=== PATIENT | female | born 1990 | race Two or more races ===

== ENCOUNTER 2021-02-07 09:58 | Emergency (ER) | payer MEDICAID, OTHER ==
[~2021-02-07] VITALS: Ht 165.1 cm; Wt 65.8 kg
[2021-02-07 10:32] VITALS: BP 128/88
== END 2021-02-07 11:01 | disposition home or self-care (01) ==
LOC: ER 09:58
DX: S93.691A Other sprain of right foot, initial encounter (principal); W22.8XXA Striking against or struck by other objects, initial encounter; Y93.89 Activity, other specified; Y92.89 Other specified places as the place of occurrence of the external cause; Y99.8 Other external cause status
CPT/HCPCS: 73630

== ENCOUNTER 2021-04-09 22:20 | Emergency (ER) | payer MEDICAID ==
[~2021-04-09] VITALS: Ht 162.6 cm; Wt 68.0 kg
[2021-04-09] MEDS ORDERED: diphenhdrAMINE HCL 50 MG/1 ML VL IM ONE (23:00)
[2021-04-09] MEDS ORDERED: methylPREDNISolone SOD SUCC 125 MG/2 ML VL IM ONE (23:00)
[2021-04-09 23:10] VITALS: BP 143/97
== END 2021-04-09 23:59 | disposition home or self-care (01) ==
LOC: ER 22:24
DX: L50.0 Allergic urticaria (principal); L29.9 Pruritus, unspecified
CPT/HCPCS: 96372; 99284; J1200; J2930

== ENCOUNTER 2022-04-30 14:26 | Emergency (ER) | payer MEDICAID, OTHER ==
[~2022-04-30] VITALS: Ht 165.1 cm; Wt 63.3 kg
[2022-04-30 16:30] VITALS: BP 110/74
[2022-04-30] MEDS ORDERED: IBUP800T27 PO (16:57)
[2022-04-30] MEDS ORDERED: CYCL-837 PO (16:57)
== END 2022-04-30 18:43 | disposition home or self-care (01) ==
LOC: ER 14:26
DX: S16.1XXA Strain of muscle, fascia and tendon at neck level, initial encounter (principal); R51.9 Headache, unspecified; V43.62XA Car passenger injured in collision with other type car in traffic accident, initial encounter; Y93.89 Activity, other specified; Y92.410 Unspecified street and highway as the place of occurrence of the external cause; Y99.8 Other external cause status
CPT/HCPCS: 70450; 72125

== ENCOUNTER 2023-04-03 22:05 | Inpatient (IN) | payer MEDICAID ==
[~2023-04-03] VITALS: Ht 162.6 cm; Wt 69.0 kg
[~2023-04-03 22:05] MED LIST: CYCL-837 PO; IBUP-1456 PO
[2023-04-03] MEDS ORDERED: ONDANSETRON HCL 4 MG/2 ML VIAL IV ONE (22:30)
[2023-04-03] MEDS ORDERED: SODIUM CHLORIDE 0.9% 1,000 ML IV ONE (22:30)
[2023-04-03] MEDS ORDERED: MORPHINE SULFATE 4 MG/ML SYR/VIAL IV ONE (22:30)
[2023-04-03 23:28] LABS: Basophils # (auto) 0 10 ^3/uL (0-0.2); Basophils % (auto) 0.2 % (0.0-2.0); Eosinophils # (auto) 0 10 ^3/uL (0-0.8); Eosinophils % (auto) 0.2 % (0.0-7.0); Hematocrit 35.2 % (36.0-46.0); Hemoglobin 11.5 g/dL (12.2-16.2); Lymphocytes # (auto) 0.9 10 ^3/uL (0.4-5.4); Lymphocytes % (auto) 5.5 % (10.0-50.0); Mean Corpuscular Hemoglobin 28.9 pg (28.0-32.0); Mean Corpuscular Hgb Conc. 32.8 g/dL (32.0-36.0); Mean Corpuscular Volume 88.1 fL (80.0-100.0); Monocytes # (auto) 0.5 10 ^3/uL (0-1.3); Monocytes % (auto) 3.3 % (0.0-12.0); Neutrophils # (auto) 14.5 10 ^3/uL (1.6-8.6); Neutrophils % (auto) 90.8 % (37.0-80.0); Red Blood Cells 3.99 10^6/uL (4.0-5.20); Red Cell Distribution Width 13.2 % (11.8-14.3)
[2023-04-03 23:45] LABS: Albumin 3.5 g/dL (3.4-5.0); BUN/Creatinine Ratio 13.5 (10.0-20.0); Calcium 8.2 mg/dL (8.5-10.1); Potassium 3.6 mmol/L (3.5-5.1)
[2023-04-03 23:54] LABS: Bilirubin, Total 0.4 mg/dL (0.2-1.0); Total Protein 6.7 g/dL (6.4-8.2)
[2023-04-04] MEDS ORDERED: HYDROmorphone HCL 2 MG/ML VL/or syr IV ONE (00:15)
[2023-04-04] MEDS ORDERED: MIDAZOLAM HCL 5 MG/ML-1ML VIAL IV ONE ×2 (01:15→03:05)
[2023-04-04] MEDS ORDERED: SODIUM CHLORIDE 0.9% 1,000 ML IV ONE ×2 (01:15→12:15)
[2023-04-04] MEDS ORDERED: KETOROLAC TROMETH 30 MG/ML 1ML VIAL IV ONE (01:15)
[2023-04-04 02:37] LABS: Urine Bacteria FEW /hpf (None Seen); Urine Blood Negative /uL (Negative); Urine Mucus FEW (None Seen); Urine Specific Gravity 1.016 (1.001-1.035); Urine WBC 12 /hpf (0 - 5)
[2023-04-04 02:47] LABS: Alcohol, Urine < 3.0 mg/dL (0-10); Cannabinoid Screen, Urine POSITIVE (NEGATIVE); Cocaine Screen, Urine NEGATIVE (NEGATIVE); Phencyclidine Screen, Urine NEGATIVE (NEGATIVE)
[2023-04-04 02:54] LABS: Amphetamine Screen, Urine NEGATIVE (NEGATIVE); Barbiturate Scree,Urine NEGATIVE (NEGATIVE); Benzodiazephine Screen, Urine NEGATIVE (NEGATIVE); Opiate Scree,Urine POSITIVE (NEGATIVE)
[2023-04-04] MEDS ORDERED: ONDANSETRON HCL 4 MG/2 ML VIAL IV ONE (04:30)
[2023-04-04] MEDS ORDERED: diphenhdrAMINE HCL 50 MG/1 ML VL IV ONE (04:40)
[2023-04-04] MEDS ORDERED: HALOPERIDOL LACTATE 5 MG/ML INJ VIAL IM ONE (04:40)
[2023-04-04] MEDS ORDERED: MORPHINE SULFATE INJ 2 MG/ml SYRG IV PRN (08:15)
[2023-04-04] MEDS ORDERED: SODIUM CHLORIDE 0.9% 1,000 ML IV SCH (08:15)
[2023-04-04] MEDS ORDERED: PANTOPRAZOLE 40 MG/10 ML VIAL INJ IV ONE (08:15)
[2023-04-04] MEDS ORDERED: POTASSIUM CHL 20 Meq TABLET PO ONE (08:15)
[2023-04-04] MEDS: ONDANSETRON HCL 4 MG/2 ML VIAL IV PRN ×5 (08:30→23:17)
[2023-04-04] MEDS ORDERED: POTASSIUM CHL 20MEQ/100ML 100 ML IV ONE (08:30)
[2023-04-04] MEDS ORDERED: ONDANSETRON HCL 4 MG/2 ML VIAL IV PRN (12:00)
[2023-04-04] MEDS ORDERED: DOCUSATE SOD 100 MG CAP PO PRN (12:00)
[2023-04-04] MEDS: SODIUM CHLORIDE 0.9% 1,000 ML IV SCH ×2 (12:35→20:34)
[2023-04-04] MEDS: MORPHINE SULFATE INJ 2 MG/ml SYRG IV PRN ×3 (13:24→22:27)
[2023-04-05] MEDS: ONDANSETRON HCL 4 MG/2 ML VIAL IV PRN (04:50)
[2023-04-05] MEDS: MORPHINE SULFATE INJ 2 MG/ml SYRG IV PRN ×5 (04:51→20:49)
[2023-04-05] MEDS: SODIUM CHLORIDE 0.9% 1,000 ML IV SCH ×3 (05:12→22:17)
[2023-04-05 05:57] LABS: Basophils # (auto) 0.1 10 ^3/uL (0-0.2); Basophils % (auto) 0.7 % (0.0-2.0); Eosinophils # (auto) 0.1 10 ^3/uL (0-0.8); Eosinophils % (auto) 0.9 % (0.0-7.0); Hematocrit 32.3 % (36.0-46.0); Hemoglobin 10.5 g/dL (12.2-16.2); Lymphocytes % (auto) 21.5 % (10.0-50.0); Mean Corpuscular Hemoglobin 28.9 pg (28.0-32.0); Mean Corpuscular Hgb Conc. 32.6 g/dL (32.0-36.0); Mean Corpuscular Volume 88.7 fL (80.0-100.0); Monocytes # (auto) 0.6 10 ^3/uL (0-1.3); Monocytes % (auto) 6.7 % (0.0-12.0); Neutrophils # (auto) 6.4 10 ^3/uL (1.6-8.6); Neutrophils % (auto) 70.2 % (37.0-80.0); Red Blood Cells 3.64 10^6/uL (4.0-5.20); Red Cell Distribution Width 13.4 % (11.8-14.3); White Blood Cell 9.1 10^3/uL (4.4-10.8)
[2023-04-05 06:16] LABS: Potassium 3.5 mmol/L (3.5-5.1)
[2023-04-05 06:27] LABS: Albumin 2.9 g/dL (3.4-5.0); BUN/Creatinine Ratio 10.7 (10.0-20.0); Bilirubin, Total 0.4 mg/dL (0.2-1.0); Calcium 7.7 mg/dL (8.5-10.1); Total Protein 5.4 g/dL (6.4-8.2)
[2023-04-05] MEDS ORDERED: POLYETHYLENE GLYCOL 17 GM PWDR PO ONE (08:45)
[2023-04-05] MEDS: PANTOPRAZOLE 40 MG/10 ML VIAL INJ IV SCH (09:47)
[2023-04-05 11:17] VITALS: BP 121/79
[2023-04-05] MEDS ORDERED: ALBUAER3 IN (11:47)
[2023-04-05 13:00] VITALS: BP_SYST 121; BP_SYST 150; BP_DIAS 78; BP_DIAS 79
[2023-04-05 17:00] VITALS: BP 135/75
[2023-04-05 22:00] VITALS: BP 117/66
[2023-04-06] MEDS: MORPHINE SULFATE INJ 2 MG/ml SYRG IV PRN ×4 (02:29→17:03)
[2023-04-06 05:00] VITALS: BP 118/64
[2023-04-06] MEDS: SODIUM CHLORIDE 0.9% 1,000 ML IV SCH ×2 (06:43→14:00)
[2023-04-06] MEDS: PANTOPRAZOLE 40 MG/10 ML VIAL INJ IV SCH (08:14)
[2023-04-06 08:39] VITALS: BP 117/72
[2023-04-06] MEDS ORDERED: LORazepam 2MG/ML-1ML VIAL IV PRN (09:30)
[2023-04-06 12:53] VITALS: BP 122/83
[2023-04-06] MEDS ORDERED: PANT40TA2 PO (14:45)
[2023-04-06] MEDS ORDERED: LEVO500T91 PO (14:45)
[2023-04-06] MEDS ORDERED: MET500T PO (14:45)
[2023-04-06 15:14] VITALS: BP 122/83
[2023-04-06 17:33] VITALS: BP 125/86
== END 2023-04-06 18:18 | disposition home or self-care (01) | DRG 282 ==
LOC: ER 22:05 → EDBD 22:05 → OVERFLOW 04-04 12:11 → CENTRAL 04-05 10:00
PROVIDERS: ADMIT Nurse Practitioner Family; ATTEND Internal Medicine
DX: K85.90 Acute pancreatitis without necrosis or infection, unspecified (principal); E87.29 Other acidosis; E87.8 Other disorders of electrolyte and fluid balance, not elsewhere classified; D64.9 Anemia, unspecified; K82.8 Other specified diseases of gallbladder; K44.9 Diaphragmatic hernia without obstruction or gangrene; E87.6 Hypokalemia; E86.0 Dehydration; K58.0 Irritable bowel syndrome with diarrhea; F41.9 Anxiety disorder, unspecified; R73.9 Hyperglycemia, unspecified
CPT/HCPCS: 36415; 74176; 76705; 80053; 80307; 81001; 83605; 83690; 83735; 84484; 85025; 93005; 96361; 96374; 96375; C9113; G0378; J1885; J2250; J2405; J3480

== ENCOUNTER 2023-04-28 19:09 | Emergency (ER) | payer MEDICAID ==
[~2023-04-28] VITALS: Ht 162.6 cm; Wt 68.2 kg
[~2023-04-28 19:09] MED LIST changes: +ALBUAER3 IN; -CYCL-837 PO; -IBUP-1456 PO; +LEVO500T91 PO; +MET500T PO; +PANT40TA2 PO
[2023-04-28 20:59] LABS: Albumin 3.9 g/dL (3.4-5.0); Calcium 9.1 mg/dL (8.5-10.1); Potassium 4.3 mmol/L (3.5-5.1)
[2023-04-28 21:00] LABS: Basophils # (auto) 0.1 10 ^3/uL (0-0.2); Basophils % (auto) 0.7 % (0.0-2.0); Eosinophils # (auto) 0.1 10 ^3/uL (0-0.8); Eosinophils % (auto) 1.5 % (0.0-7.0); Hematocrit 39.4 % (36.0-46.0); Hemoglobin 12.8 g/dL (12.2-16.2); Lymphocytes # (auto) 2.7 10 ^3/uL (0.4-5.4); Lymphocytes % (auto) 30.6 % (10.0-50.0); Mean Corpuscular Hemoglobin 28.1 pg (28.0-32.0); Mean Corpuscular Hgb Conc. 32.5 g/dL (32.0-36.0); Mean Corpuscular Volume 86.3 fL (80.0-100.0); Monocytes # (auto) 0.6 10 ^3/uL (0-1.3); Monocytes % (auto) 7.1 % (0.0-12.0); Neutrophils # (auto) 5.3 10 ^3/uL (1.6-8.6); Neutrophils % (auto) 60.1 % (37.0-80.0); Nucleated Red Blood Cells % 0.1 %; Red Blood Cells 4.57 10^6/uL (4.0-5.20); White Blood Cell 8.8 10^3/uL (4.4-10.8)
[2023-04-28 21:02] LABS: BUN/Creatinine Ratio 14.1 (10.0-20.0); Bilirubin, Total 0.1 mg/dL (0.2-1.0); Total Protein 7.4 g/dL (6.4-8.2)
[2023-04-28] MEDS ORDERED: ONDANSETRON HCL 4 MG/2 ML VIAL IV ONE (22:00)
[2023-04-28] MEDS ORDERED: MORPHINE SULFATE 4 MG/ML SYR/VIAL IV ONE (22:00)
[2023-04-29] MEDS ORDERED: SODIUM CHLORIDE 0.9% 2,000 ML IV ONE
[2023-04-29] MEDS ORDERED: MORPHINE SULFATE 4 MG/ML SYR/VIAL IV ONE ×2 (01:00→03:30)
[2023-04-29] MEDS ORDERED: ZOFR4T PO (01:11)
[2023-04-29] MEDS ORDERED: HYDR-4902 PO (01:11)
[2023-04-29 02:01] LABS: Urine Bacteria MOD /hpf (None Seen); Urine Blood Negative /uL (Negative); Urine Hyaline Cast FEW /lpf (0 - 2); Urine WBC 14 /hpf (0 - 5)
[2023-04-29 02:06] LABS: Urine Specific Gravity > 1.050 (1.001-1.035)
[2023-04-29] MEDS ORDERED: IOHEXOL 350 MG/ML 100ML IJ ONE (02:36)
[2023-04-29 03:30] VITALS: PULSE 74; RESP 18; O2SAT 98
[2023-04-29] MEDS ORDERED: KETOROLAC TROMETH 30 MG/ML 1ML VIAL IV ONE (03:30)
[2023-04-29] MEDS ORDERED: ONDANSETRON HCL 4 MG/2 ML VIAL IV ONE (03:30)
[2023-04-29 03:33] VITALS: TEMP 98.3; O2SAT 99
[2023-04-29 03:58] VITALS: BP 104/66; PULSE 70; RESP 18
== END 2023-04-29 03:59 | disposition home or self-care (01) ==
LOC: ER 19:09
DX: K85.90 Acute pancreatitis without necrosis or infection, unspecified (principal); R11.2 Nausea with vomiting, unspecified; F12.10 Cannabis abuse, uncomplicated; Z88.6 Allergy status to analgesic agent
CPT/HCPCS: 36415; 74177; 76705; 80053; 81001; 83690; 85025; 96361; 96374; 96375; 96376; 99285; J1885; J2270; J2405; J7030; Q9967

== ENCOUNTER 2023-04-30 16:43 | Inpatient (IN) | payer MEDICAID ==
[~2023-04-30] VITALS: Ht 162.6 cm; Wt 69.2 kg
[~2023-04-30 16:43] MED LIST changes: +HYDR-4902 PO; +ZOFR4T PO
[2023-04-30] MEDS ORDERED: DICYCLOMINE HCL (10MG/ML) 2 ML AMPULE IM ONE (19:00)
[2023-04-30] MEDS ORDERED: KETOROLAC TROMETH 30 MG/ML 1ML VIAL IV ONE (19:00)
[2023-04-30] MEDS ORDERED: ONDANSETRON HCL 4 MG/2 ML VIAL IV ONE (19:00)
[2023-04-30 20:30] VITALS: PULSE 68; RESP 15; O2SAT 100
[2023-04-30 21:04] LABS: Basophils # (auto) 0.1 10 ^3/uL (0-0.2); Basophils % (auto) 0.9 % (0.0-2.0); Eosinophils # (auto) 0.2 10 ^3/uL (0-0.8); Eosinophils % (auto) 2.3 % (0.0-7.0); Hematocrit 38.3 % (36.0-46.0); Hemoglobin 12.3 g/dL (12.2-16.2); Lymphocytes % (auto) 33.5 % (10.0-50.0); Mean Corpuscular Hemoglobin 28.4 pg (28.0-32.0); Mean Corpuscular Hgb Conc. 32.2 g/dL (32.0-36.0); Mean Corpuscular Volume 88.2 fL (80.0-100.0); Monocytes # (auto) 0.5 10 ^3/uL (0-1.3); Monocytes % (auto) 5.1 % (0.0-12.0); Neutrophils # (auto) 5.2 10 ^3/uL (1.6-8.6); Neutrophils % (auto) 58.2 % (37.0-80.0); Red Blood Cells 4.34 10^6/uL (4.0-5.20); White Blood Cell 8.9 10^3/uL (4.4-10.8)
[2023-04-30 21:13] LABS: Calcium 8.8 mg/dL (8.5-10.1); Potassium 3.6 mmol/L (3.5-5.1)
[2023-04-30 21:18] LABS: BUN/Creatinine Ratio 15.5 (10.0-20.0); Bilirubin, Total 0.4 mg/dL (0.2-1.0); Total Protein 7.9 g/dL (6.4-8.2)
[2023-04-30] MEDS ORDERED: SODIUM CHLORIDE 0.9% 1,000 ML IV ONE ×2 (22:15)
[2023-04-30] MEDS ORDERED: DOCUSATE SOD 100 MG CAP PO PRN (23:45)
[2023-04-30] MEDS ORDERED: ACETAMINOPHEN 325 MG TAB PO PRN (23:45)
[2023-04-30] MEDS ORDERED: HYDROcodone-ACET 5/325MG TAB PO PRN (23:45)
[2023-04-30] MEDS ORDERED: NITROGLYCERIN 0.4 MG SL TAB SL PRN (23:45)
[2023-05-01] MEDS: D5W/SOD CHLO 0.9% 1,000 ML IV SCH ×2 (00:31→13:05)
[2023-05-01] MEDS: ONDANSETRON HCL 4 MG/2 ML VIAL IV PRN ×5 (00:31→13:56)
[2023-05-01] MEDS: MORPHINE SULFATE INJ 2 MG/ml SYRG IV PRN ×6 (00:32→18:01)
[2023-05-01 00:33] LABS: Urine Bacteria FEW /hpf (None Seen); Urine Blood Negative /uL (Negative); Urine Clarity Clear (Clear); Urine Color Yellow (Yellow); Urine Mucus FEW (None Seen); Urine Protein, UAD Negative (Negative); Urine Specific Gravity 1.017 (1.001-1.035); Urine Urobilinogen Normal (Negative); Urine WBC 3 /hpf (0 - 5); Urine pH 6.5 (5.0-8.0)
[2023-05-01 04:51] VITALS: BP 126/78; PULSE 78; PULSE 82; RESP 16; RESP 18; TEMP 98.2; O2SAT 95
[2023-05-01 05:15] LABS: Calcium 7.8 mg/dL (8.5-10.1); Potassium 3.8 mmol/L (3.5-5.1)
[2023-05-01 05:20] LABS: BUN/Creatinine Ratio 15.9 (10.0-20.0); Bilirubin, Total 0.3 mg/dL (0.2-1.0); Total Protein 5.9 g/dL (6.4-8.2)
[2023-05-01 05:36] LABS: Basophils # (auto) 0.1 10 ^3/uL (0-0.2); Basophils % (auto) 1.2 % (0.0-2.0); Eosinophils # (auto) 0.2 10 ^3/uL (0-0.8); Eosinophils % (auto) 3.2 % (0.0-7.0); Hematocrit 33.1 % (36.0-46.0); Hemoglobin 10.7 g/dL (12.2-16.2); Lymphocytes # (auto) 2.2 10 ^3/uL (0.4-5.4); Lymphocytes % (auto) 36.7 % (10.0-50.0); Mean Corpuscular Hemoglobin 28.6 pg (28.0-32.0); Mean Corpuscular Hgb Conc. 32.4 g/dL (32.0-36.0); Mean Corpuscular Volume 88.4 fL (80.0-100.0); Monocytes # (auto) 0.5 10 ^3/uL (0-1.3); Monocytes % (auto) 8.5 % (0.0-12.0); Neutrophils # (auto) 3.1 10 ^3/uL (1.6-8.6); Neutrophils % (auto) 50.4 % (37.0-80.0); Red Blood Cells 3.74 10^6/uL (4.0-5.20); Red Cell Distribution Width 14.1 % (11.8-14.3); White Blood Cell 6.1 10^3/uL (4.4-10.8)
[2023-05-01 09:00] VITALS: BP 124/67; PULSE 78; RESP 16; TEMP 98.7; O2SAT 98
[2023-05-01] MEDS ORDERED: LACTULOSE 20Gm/30ML SOLN PO ONE (12:00)
[2023-05-01] MEDS ORDERED: CLON0.5T3 PO (12:02)
[2023-05-01] MEDS ORDERED: clonazePAM 0.5 MG TAB PO PRN (12:30)
[2023-05-01 13:00] VITALS: BP 117/63; PULSE 78; RESP 20; TEMP 99.3; O2SAT 100
[2023-05-01] MEDS: KETOROLAC TROMETH 30 MG/ML 1ML VIAL IV PRN ×2 (13:04→21:29)
[2023-05-01] MEDS: LORazepam 2MG/ML-1ML VIAL IV PRN (15:04)
[2023-05-01] MEDS: METOCLOPRAMIDE HCL 5MG/ml INJ 2ml VIAL IV SCH ×2 (15:04→21:03)
[2023-05-01 17:00] VITALS: BP 127/80; PULSE 69; RESP 20; TEMP 99; O2SAT 97
[2023-05-01] MEDS ORDERED: MORPHINE SULFATE INJ 2 MG/ml SYRG IV PRN (17:00)
[2023-05-01] MEDS ORDERED: CLON1TAB PO (17:33)
[2023-05-01 20:00] VITALS: PULSE 99; RESP 20; O2SAT 98
[2023-05-01 22:00] VITALS: BP 121/66; PULSE 116; RESP 20; TEMP 98.2; O2SAT 98
[2023-05-02] MEDS: D5W/SOD CHLO 0.9% 1,000 ML IV SCH ×2 (03:20→06:01)
[2023-05-02 05:00] VITALS: BP 115/80; PULSE 93; RESP 18; TEMP 97.8; O2SAT 98
[2023-05-02] MEDS: MORPHINE SULFATE INJ 2 MG/ml SYRG IV PRN ×6 (05:59→21:03)
[2023-05-02] MEDS: METOCLOPRAMIDE HCL 5MG/ml INJ 2ml VIAL IV SCH ×3 (06:00→21:02)
[2023-05-02 06:58] LABS: Albumin 3.1 g/dL (3.4-5.0); Calcium 7.9 mg/dL (8.5-10.1); Potassium 4.5 mmol/L (3.5-5.1)
[2023-05-02 07:04] LABS: BUN/Creatinine Ratio 10.1 (10.0-20.0); Bilirubin, Total 0.1 mg/dL (0.2-1.0); Total Protein 6.1 g/dL (6.4-8.2)
[2023-05-02 07:12] LABS: Basophils # (auto) 0.1 10 ^3/uL (0-0.2); Basophils % (auto) 0.8 % (0.0-2.0); Eosinophils # (auto) 0.2 10 ^3/uL (0-0.8); Eosinophils % (auto) 3.4 % (0.0-7.0); Hematocrit 36.7 % (36.0-46.0); Hemoglobin 11.5 g/dL (12.2-16.2); Lymphocytes # (auto) 1.7 10 ^3/uL (0.4-5.4); Lymphocytes % (auto) 23.3 % (10.0-50.0); Mean Corpuscular Hemoglobin 28.1 pg (28.0-32.0); Mean Corpuscular Hgb Conc. 31.2 g/dL (32.0-36.0); Monocytes # (auto) 0.6 10 ^3/uL (0-1.3); Monocytes % (auto) 8.1 % (0.0-12.0); Neutrophils # (auto) 4.6 10 ^3/uL (1.6-8.6); Neutrophils % (auto) 64.4 % (37.0-80.0); Nucleated Red Blood Cells % 0.1 %; Red Blood Cells 4.08 10^6/uL (4.0-5.20); Red Cell Distribution Width 13.8 % (11.8-14.3); White Blood Cell 7.2 10^3/uL (4.4-10.8)
[2023-05-02 09:00] VITALS: BP 120/80; PULSE 87; RESP 18; TEMP 98.2; O2SAT 98
[2023-05-02] MEDS ORDERED: PANTOPRAZOLE 40 MG TAB PO SCH (10:00)
[2023-05-02] MEDS: LACTULOSE 20Gm/30ML SOLN PO SCH (10:29)
[2023-05-02] MEDS: LORazepam 2MG/ML-1ML VIAL IV PRN (11:41)
[2023-05-02 13:00] VITALS: BP 115/80; PULSE 61; RESP 18; TEMP 98; O2SAT 98
[2023-05-02] MEDS: KETOROLAC TROMETH 30 MG/ML 1ML VIAL IV PRN ×2 (13:45→20:25)
[2023-05-02] MEDS: SODIUM CHLORIDE 0.9% 1,000 ML IV SCH (16:27)
[2023-05-02 17:00] VITALS: BP_SYST 122; BP_SYST 137; BP_DIAS 73; BP_DIAS 77; PULSE 124; PULSE 58; RESP 20; RESP 24; TEMP 97.6; TEMP 98.4; O2SAT 97
[2023-05-02 17:18] LABS: Urine Bacteria FEW /hpf (None Seen); Urine Blood Negative /uL (Negative); Urine Clarity Clear (Clear); Urine Color Colorless (Yellow); Urine Protein, UAD Negative (Negative); Urine Specific Gravity 1.007 (1.001-1.035); Urine Urobilinogen Normal (Negative); Urine WBC <1 /hpf (0 - 5); Urine pH 5.5 (5.0-8.0)
[2023-05-02 20:00] VITALS: BP 115/56; PULSE 81; RESP 18; TEMP 97.8; O2SAT 98
[2023-05-02 22:00] VITALS: BP 115/56; PULSE 81; RESP 18; TEMP 97.8; O2SAT 98
[2023-05-03] MEDS: SODIUM CHLORIDE 0.9% 1,000 ML IV SCH ×2 (04:05→17:25)
[2023-05-03 05:00] VITALS: BP 130/93; PULSE 76; RESP 20; TEMP 97.7; O2SAT 99
[2023-05-03] MEDS: D5W/SOD CHLO 0.9% 1,000 ML IV SCH (05:05)
[2023-05-03] MEDS: METOCLOPRAMIDE HCL 5MG/ml INJ 2ml VIAL IV SCH ×2 (05:12→21:56)
[2023-05-03] MEDS: MORPHINE SULFATE INJ 2 MG/ml SYRG IV PRN ×4 (05:22→19:41)
[2023-05-03 07:05] LABS: Basophils # (auto) 0 10 ^3/uL (0-0.2); Basophils % (auto) 0.8 % (0.0-2.0); Eosinophils # (auto) 0.3 10 ^3/uL (0-0.8); Eosinophils % (auto) 5.7 % (0.0-7.0); Hematocrit 35.2 % (36.0-46.0); Hemoglobin 11.6 g/dL (12.2-16.2); Lymphocytes # (auto) 1.6 10 ^3/uL (0.4-5.4); Lymphocytes % (auto) 31.2 % (10.0-50.0); Mean Corpuscular Hemoglobin 28.2 pg (28.0-32.0); Mean Corpuscular Hgb Conc. 32.8 g/dL (32.0-36.0); Monocytes # (auto) 0.5 10 ^3/uL (0-1.3); Monocytes % (auto) 9.3 % (0.0-12.0); Neutrophils # (auto) 2.7 10 ^3/uL (1.6-8.6); Red Blood Cells 4.09 10^6/uL (4.0-5.20); Red Cell Distribution Width 13.3 % (11.8-14.3); White Blood Cell 5.2 10^3/uL (4.4-10.8)
[2023-05-03 07:54] LABS: Potassium 4.1 mmol/L (3.5-5.1)
[2023-05-03 07:59] LABS: BUN/Creatinine Ratio 15.7 (10.0-20.0); Calcium 8.1 mg/dL (8.5-10.1)
[2023-05-03 09:00] VITALS: BP 132/86; PULSE 71; RESP 18; TEMP 97.7; O2SAT 100
[2023-05-03] MEDS: PANTOPRAZOLE 40 MG/10 ML VIAL INJ IV SCH (09:51)
[2023-05-03] MEDS: LACTULOSE 20Gm/30ML SOLN PO SCH (09:51)
[2023-05-03] MEDS ORDERED: clonazePAM 0.5 MG TAB PO PRN (11:00)
[2023-05-03] MEDS ORDERED: HYDROmorphone HCL 2 MG/ML VL/or syr IV PRN (12:45)
[2023-05-03 13:00] VITALS: BP 127/74; PULSE 85; RESP 17; TEMP 98; O2SAT 96
[2023-05-03] MEDS: LORazepam 2MG/ML-1ML VIAL IV PRN (13:23)
[2023-05-03 17:00] VITALS: BP 129/78; PULSE 94; RESP 18; TEMP 98.1; O2SAT 98
[2023-05-03] MEDS ORDERED: KETOROLAC TROMETH 30 MG/ML 1ML VIAL IV PRN (17:45)
[2023-05-03 20:00] VITALS: BP 121/75; PULSE 107; RESP 16; TEMP 97.8; O2SAT 98
[2023-05-03 21:30] LABS: Alcohol, Urine < 3.0 mg/dL (0-10); Amphetamine Screen, Urine NEGATIVE (NEGATIVE); Barbiturate Scree,Urine NEGATIVE (NEGATIVE); Benzodiazephine Screen, Urine NEGATIVE (NEGATIVE); Cannabinoid Screen, Urine POSITIVE (NEGATIVE); Cocaine Screen, Urine NEGATIVE (NEGATIVE); Opiate Scree,Urine POSITIVE (NEGATIVE); Phencyclidine Screen, Urine NEGATIVE (NEGATIVE)
[2023-05-03 22:00] VITALS: BP 121/75; PULSE 107; RESP 16; TEMP 97.8; O2SAT 98
[2023-05-04] MEDS: METOCLOPRAMIDE HCL 5MG/ml INJ 2ml VIAL IV SCH (04:59)
[2023-05-04] MEDS: SODIUM CHLORIDE 0.9% 1,000 ML IV SCH ×2 (04:59→20:05)
[2023-05-04 05:00] VITALS: BP 126/78; PULSE 71; RESP 16; TEMP 97.7; O2SAT 96
[2023-05-04] MEDS: MORPHINE SULFATE INJ 2 MG/ml SYRG IV PRN ×3 (05:00→21:59)
[2023-05-04] MEDS: LORazepam 2MG/ML-1ML VIAL IV PRN ×2 (05:56→18:58)
[2023-05-04 06:57] LABS: Albumin 3.1 g/dL (3.4-5.0); Calcium 8.6 mg/dL (8.5-10.1); Magnesium 2.1 mg/dL (1.6-2.6); Potassium 4.5 mmol/L (3.5-5.1)
[2023-05-04 07:02] LABS: BUN/Creatinine Ratio 15.9 (10.0-20.0); Bilirubin, Total 0.1 mg/dL (0.2-1.0); Total Protein 6.3 g/dL (6.4-8.2)
[2023-05-04 09:00] VITALS: BP 123/84; PULSE 74; RESP 16; TEMP 98.2; O2SAT 99
[2023-05-04] MEDS: PANTOPRAZOLE 40 MG/10 ML VIAL INJ IV SCH (10:30)
[2023-05-04] MEDS ORDERED: HYDROmorphone HCL 2 MG/ML VL/or syr IV PRN (11:45)
[2023-05-04 13:00] VITALS: BP 119/84; PULSE 73; RESP 20; TEMP 98.1; O2SAT 98
[2023-05-04] MEDS ORDERED: ONDANSETRON ODT 4 MG TAB PO PRN (13:45)
[2023-05-04 17:00] VITALS: BP 119/68; PULSE 107; RESP 18; TEMP 98.3; O2SAT 96
[2023-05-04] MEDS: ONDANSETRON HCL 4 MG/2 ML VIAL IV PRN (18:58)
[2023-05-04 20:00] VITALS: BP 107/69; PULSE 82; RESP 16; TEMP 97.8; O2SAT 98
[2023-05-05 05:00] VITALS: BP 113/81; PULSE 87; RESP 20; TEMP 98; O2SAT 100
[2023-05-05] MEDS: MORPHINE SULFATE INJ 2 MG/ml SYRG IV PRN ×4 (05:38→20:06)
[2023-05-05] MEDS: ONDANSETRON HCL 4 MG/2 ML VIAL IV PRN ×3 (05:41→20:05)
[2023-05-05 06:31] LABS: Basophils # (auto) 0.1 10 ^3/uL (0-0.2); Basophils % (auto) 1.2 % (0.0-2.0); Eosinophils # (auto) 0.5 10 ^3/uL (0-0.8); Eosinophils % (auto) 7.6 % (0.0-7.0); Hematocrit 37.3 % (36.0-46.0); Hemoglobin 12.3 g/dL (12.2-16.2); Lymphocytes # (auto) 2.3 10 ^3/uL (0.4-5.4); Lymphocytes % (auto) 36.9 % (10.0-50.0); Mean Corpuscular Hemoglobin 28.5 pg (28.0-32.0); Mean Corpuscular Volume 86.3 fL (80.0-100.0); Monocytes # (auto) 0.4 10 ^3/uL (0-1.3); Neutrophils % (auto) 47.3 % (37.0-80.0); Nucleated Red Blood Cells % 0.2 %; Red Blood Cells 4.32 10^6/uL (4.0-5.20); White Blood Cell 6.2 10^3/uL (4.4-10.8)
[2023-05-05 06:41] LABS: Albumin 3.4 g/dL (3.4-5.0); Calcium 8.5 mg/dL (8.5-10.1); Potassium 4.5 mmol/L (3.5-5.1)
[2023-05-05 06:44] LABS: Bilirubin, Total 0.2 mg/dL (0.2-1.0); Total Protein 7.1 g/dL (6.4-8.2)
[2023-05-05] MEDS: LORazepam 2MG/ML-1ML VIAL IV PRN ×2 (06:44→18:49)
[2023-05-05] MEDS ORDERED: LIDOCAINE 1% HCL (LOCAL ANESTH.) INJ 20ML MDV ONE (08:25)
[2023-05-05 08:34] LABS: INR 0.96 (0.9-1.15); Partial Thromboplastin Time 26.5 SEC (24.5-34.5); Prothrombin Time 10.1 sec (9.3-11.8)
[2023-05-05] MEDS ORDERED: levoFLOXacin 500MG 100 ML IV ONE (08:40)
[2023-05-05] MEDS ORDERED: fentaNYL CITRATE 100 MCG/2 ML VL ONE (08:50)
[2023-05-05] MEDS ORDERED: MEPERIDINE HCL (50 MG/ML) 1 ML VIAL ONE (08:50)
[2023-05-05] MEDS ORDERED: DexAMETHasone SOD PHOS 10MG/1ML VIAL INJ ONE (09:25)
[2023-05-05] MEDS: SODIUM CHLORIDE 0.9% 1,000 ML IV SCH (09:25)
[2023-05-05] MEDS ORDERED: POVIDONE IODINE 10 % TOPICAL OINT 30GM TOP ONE ×2 (09:40→09:45)
[2023-05-05] MEDS ORDERED: LABETALOL HCL 5 MG/ML 4ML SYRINGE IV PRN (09:45)
[2023-05-05] MEDS ORDERED: ePHEDrine SULFATE 50 MG/ML AMP IV PRN (09:45)
[2023-05-05] MEDS ORDERED: MORPHINE SULFATE 4 MG/ML SYR/VIAL IV PRN (09:45)
[2023-05-05] MEDS ORDERED: MIDAZOLAM HCL 2MG/2ML 2ml VIAL (1mg/ml) IV PRN (09:45)
[2023-05-05] MEDS ORDERED: ONDANSETRON HCL 4 MG/2 ML VIAL IV PRN (09:45)
[2023-05-05] MEDS ORDERED: SUGAMMADEX 200mg/2ml Vial (100MG/ML) IV ONE (09:50)
[2023-05-05] MEDS: PANTOPRAZOLE 40 MG/10 ML VIAL INJ IV SCH (10:00)
[2023-05-05 10:02] VITALS: RESP 17; O2SAT 100
[2023-05-05] MEDS: HYDROmorphone HCL 2 MG/ML VL/or syr IV PRN ×3 (10:13→10:46)
[2023-05-05] MEDS: MIDAZOLAM HCL 2MG/2ML 2ml VIAL (1mg/ml) ONE ×2 (10:16→10:27)
[2023-05-05] MEDS ORDERED: ONDANSETRON HCL 4 MG/2 ML VIAL ONE (10:50)
[2023-05-05] MEDS: KETOROLAC TROMETH 30 MG/ML 1ML VIAL IV PRN ×2 (13:00→17:02)
[2023-05-05] MEDS ORDERED: ROCURONIUM 10MG/ML 10ML VIAL IV ONE (13:50)
[2023-05-05] MEDS ORDERED: PHENYLEPHRINE HCL 10 MG/ML VL IV ONE (13:50)
[2023-05-05 17:00] VITALS: BP 119/71; PULSE 78; RESP 20; TEMP 98.8; O2SAT 93
[2023-05-05] MEDS ORDERED: LORazepam 2MG/ML-1ML VIAL IV ONE (21:15)
[2023-05-05 22:00] VITALS: BP 137/87; PULSE 83; RESP 20; TEMP 97.9; O2SAT 97
[2023-05-06] MEDS: KETOROLAC TROMETH 30 MG/ML 1ML VIAL IV PRN ×2 (00:15→20:05)
[2023-05-06] MEDS ORDERED: PROMETHAZINE HCL 25 MG/ML 1ML IV ONE (01:15)
[2023-05-06] MEDS: MORPHINE SULFATE INJ 2 MG/ml SYRG IV PRN ×5 (01:38→23:27)
[2023-05-06 05:00] VITALS: BP 143/94; PULSE 61; RESP 20; TEMP 98.6; O2SAT 100
[2023-05-06] MEDS: PANTOPRAZOLE 40 MG/10 ML VIAL INJ IV SCH (07:58)
[2023-05-06] MEDS: ONDANSETRON HCL 4 MG/2 ML VIAL IV PRN ×2 (07:58→17:26)
[2023-05-06 09:00] VITALS: BP 142/80; PULSE 80; RESP 19; TEMP 98.2; O2SAT 100
[2023-05-06] MEDS: SODIUM CHLORIDE 0.9% 1,000 ML IV SCH ×2 (10:00→12:46)
[2023-05-06] MEDS: LORazepam 2MG/ML-1ML VIAL IV PRN (10:26)
[2023-05-06] MEDS: METOCLOPRAMIDE HCL 5MG/ml INJ 2ml VIAL IV PRN ×2 (12:35→23:24)
[2023-05-06 13:00] VITALS: BP 139/67; PULSE 82; RESP 16; TEMP 99.8; O2SAT 100
[2023-05-06 13:43] LABS: Basophils # (auto) 0 10 ^3/uL (0-0.2); Basophils % (auto) 0.2 % (0.0-2.0); Eosinophils # (auto) 0 10 ^3/uL (0-0.8); Hematocrit 35.7 % (36.0-46.0); Hemoglobin 11.4 g/dL (12.2-16.2); Lymphocytes # (auto) 1.2 10 ^3/uL (0.4-5.4); Lymphocytes % (auto) 8.8 % (10.0-50.0); Mean Corpuscular Hemoglobin 27.9 pg (28.0-32.0); Mean Corpuscular Volume 87.2 fL (80.0-100.0); Monocytes % (auto) 7.4 % (0.0-12.0); Neutrophils % (auto) 83.6 % (37.0-80.0); Nucleated Red Blood Cells % 0.1 %; Red Blood Cells 4.09 10^6/uL (4.0-5.20); Red Cell Distribution Width 14.4 % (11.8-14.3); White Blood Cell 13.2 10^3/uL (4.4-10.8)
[2023-05-06 14:06] LABS: Potassium 4.2 mmol/L (3.5-5.1)
[2023-05-06 14:13] LABS: Albumin 3.4 g/dL (3.4-5.0); BUN/Creatinine Ratio 15.8 (10.0-20.0); Bilirubin, Total 0.4 mg/dL (0.2-1.0); Calcium 8.8 mg/dL (8.5-10.1)
[2023-05-06 17:00] VITALS: BP 139/91; PULSE 63; RESP 16; TEMP 98.5; O2SAT 100
[2023-05-06] MEDS ORDERED: LORazepam 0.5 MG TAB PO ONE (18:15)
[2023-05-06 20:00] VITALS: PULSE 90; RESP 18; O2SAT 94
[2023-05-06] MEDS ORDERED: LORazepam 2MG/ML-1ML VIAL IV ONE (20:00)
[2023-05-06 22:00] VITALS: BP 129/51; PULSE 91; RESP 18; TEMP 98.4; O2SAT 94
[2023-05-07] MEDS: SODIUM CHLORIDE 0.9% 1,000 ML IV SCH (01:26)
[2023-05-07] MEDS: ONDANSETRON HCL 4 MG/2 ML VIAL IV PRN ×2 (03:51→08:07)
[2023-05-07] MEDS: MORPHINE SULFATE INJ 2 MG/ml SYRG IV PRN ×2 (03:52→08:08)
[2023-05-07 05:00] VITALS: BP 119/71; PULSE 77; RESP 18; TEMP 98.3; O2SAT 98
[2023-05-07] MEDS: LORazepam 2MG/ML-1ML VIAL IV PRN (06:51)
[2023-05-07] MEDS: METOCLOPRAMIDE HCL 5MG/ml INJ 2ml VIAL IV PRN (07:13)
[2023-05-07] MEDS: PANTOPRAZOLE 40 MG/10 ML VIAL INJ IV SCH (08:07)
[2023-05-07 08:30] VITALS: PULSE 85; RESP 18; O2SAT 94
[2023-05-07 09:00] VITALS: BP 140/89; PULSE 60; RESP 16; TEMP 97.2; O2SAT 95
[2023-05-07] MEDS ORDERED: KETOROLAC TROMETH 30 MG/ML 1ML VIAL IV ONE (09:15)
[2023-05-07] MEDS ORDERED: AMOX500T86 PO (09:53)
[2023-05-07] MEDS ORDERED: ZOFR4T PO (09:53)
[2023-05-07 11:22] VITALS: TEMP 36.2
== END 2023-05-07 11:46 | disposition home or self-care (01) | DRG 263 ==
LOC: ER 16:43 → OVERFLOW 23:36 → CENTRAL 05-01 04:34
PROVIDERS: ADMIT Internal Medicine Pulmonary Disease; ATTEND Internal Medicine
PROC: 0FT44ZZ Resection of Gallbladder, Percutaneous Endoscopic Approach (ICD-10-PCS; principal; 2023-05-05 08:53)
DX: K80.10 Calculus of gallbladder with chronic cholecystitis without obstruction (principal); F17.200 Nicotine dependence, unspecified, uncomplicated; F41.9 Anxiety disorder, unspecified; Z82.49 Family history of ischemic heart disease and other diseases of the circulatory system; Z82.5 Family history of asthma and other chronic lower respiratory diseases; Z88.1 Allergy status to other antibiotic agents
CPT/HCPCS: 36415; 74181; 78226; 80048; 80053; 80061; 80307; 81001; 81025; 82306; 82607; 83690; 83735; 84443; 84484; 85025; 85610; 85730; 86850; 86900; 86901; 93005; 96361; 96372; 96374; 96375; C9113; G0378; J1100; J1885; J1956; J2001; J2250; J2405; J7042; Q0162

== ENCOUNTER 2023-05-08 11:12 | Inpatient (IN) | payer MEDICAID ==
[~2023-05-08] VITALS: Ht 162.6 cm; Wt 59.6 kg
[~2023-05-08 11:12] MED LIST changes: +AMOX500T86 PO; +CLON1TAB PO; -LEVO500T91 PO; -MET500T PO
[2023-05-08] MEDS ORDERED: SODIUM CHLORIDE 0.9% 1,000 ML IV ONE ×3 (11:45→16:00)
[2023-05-08] MEDS ORDERED: MORPHINE SULFATE 4 MG/ML SYR/VIAL IV ONE (11:45)
[2023-05-08] MEDS ORDERED: ONDANSETRON HCL 4 MG/2 ML VIAL IV ONE (11:45)
[2023-05-08] MEDS ORDERED: METOCLOPRAMIDE HCL 5MG/ml INJ 2ml VIAL IV ONE ×2 (12:30→18:30)
[2023-05-08] MEDS ORDERED: KETOROLAC TROMETH 30 MG/ML 1ML VIAL IV ONE (12:30)
[2023-05-08 13:06] LABS: Basophils # (auto) 0 10 ^3/uL (0-0.2); Basophils % (auto) 0.3 % (0.0-2.0); Eosinophils # (auto) 0.1 10 ^3/uL (0-0.8); Eosinophils % (auto) 0.7 % (0.0-7.0); Hematocrit 39.1 % (36.0-46.0); Hemoglobin 12.7 g/dL (12.2-16.2); Lymphocytes # (auto) 1.4 10 ^3/uL (0.4-5.4); Lymphocytes % (auto) 16.1 % (10.0-50.0); Mean Corpuscular Hemoglobin 27.9 pg (28.0-32.0); Mean Corpuscular Hgb Conc. 32.4 g/dL (32.0-36.0); Mean Corpuscular Volume 86.1 fL (80.0-100.0); Monocytes # (auto) 0.8 10 ^3/uL (0-1.3); Monocytes % (auto) 9.1 % (0.0-12.0); Neutrophils # (auto) 6.5 10 ^3/uL (1.6-8.6); Neutrophils % (auto) 73.8 % (37.0-80.0); Red Blood Cells 4.55 10^6/uL (4.0-5.20); Red Cell Distribution Width 13.8 % (11.8-14.3); White Blood Cell 8.8 10^3/uL (4.4-10.8)
[2023-05-08 13:07] LABS: Albumin 3.7 g/dL (3.4-5.0); Calcium 9.1 mg/dL (8.5-10.1); Potassium 3.5 mmol/L (3.5-5.1)
[2023-05-08 13:10] LABS: BUN/Creatinine Ratio 14.3 (10.0-20.0); Bilirubin, Total 0.6 mg/dL (0.2-1.0); Total Protein 7.8 g/dL (6.4-8.2)
[2023-05-08 13:29] LABS: Alcohol, Urine < 3.0 mg/dL (0-10); Amphetamine Screen, Urine NEGATIVE (NEGATIVE); Barbiturate Scree,Urine NEGATIVE (NEGATIVE); Benzodiazephine Screen, Urine NEGATIVE (NEGATIVE); Cannabinoid Screen, Urine POSITIVE (NEGATIVE); Cocaine Screen, Urine NEGATIVE (NEGATIVE); Opiate Scree,Urine POSITIVE (NEGATIVE)
[2023-05-08 13:36] LABS: Phencyclidine Screen, Urine NEGATIVE (NEGATIVE)
[2023-05-08] MEDS ORDERED: PROMETHAZINE HCL 25 MG/ML 1ML IV ONE ×2 (14:00)
[2023-05-08 14:02] LABS: Urine Bacteria NONE SEEN /hpf (None Seen); Urine Blood 2+ /uL (Negative); Urine Clarity CLOUDY (Clear); Urine Color Yellow (Yellow); Urine Mucus FEW (None Seen); Urine Protein, UAD TRACE (Negative); Urine Urobilinogen Normal (Negative); Urine WBC 3 /hpf (0 - 5); Urine WBC Clumps PRESENT /hpf (None Seen); Urine pH 7.5 (5.0-8.0)
[2023-05-08] MEDS ORDERED: diphenhdrAMINE HCL 50 MG/1 ML VL IV ONE (14:30)
[2023-05-08] MEDS ORDERED: LORazepam 2MG/ML-1ML VIAL IV ONE (15:45)
[2023-05-08] MEDS ORDERED: ACETAMINOPHEN 325 MG TAB PO PRN ×2 (16:00→16:15)
[2023-05-08] MEDS ORDERED: LORazepam MDV 2MG/ML 50 MG in SODIUM CHL 0.9% 25 ML IV ONE (16:00)
[2023-05-08] MEDS ORDERED: MORPHINE SULFATE INJ 2 MG/ml SYRG IM ONE (16:00)
[2023-05-08] MEDS ORDERED: NITROGLYCERIN 0.4 MG SL TAB SL PRN ×2 (16:00→16:15)
[2023-05-08] MEDS ORDERED: LORazepam 0.5 MG TAB PO PRN ×2 (16:00→16:15)
[2023-05-08] MEDS ORDERED: MORPHINE SULFATE INJ 2 MG/ml SYRG IV PRN ×2 (16:00→16:15)
[2023-05-08] MEDS ORDERED: ONDANSETRON HCL 4 MG/2 ML VIAL IV PRN (16:15)
[2023-05-08] MEDS: SODIUM CHLORIDE 0.9% 1,000 ML IV SCH (16:18)
[2023-05-08 19:30] VITALS: PULSE 74; RESP 20; O2SAT 96
[2023-05-08 20:08] VITALS: PULSE 79; RESP 20; O2SAT 96
[2023-05-08] MEDS: LORazepam 2MG/ML-1ML VIAL IV PRN (20:08)
[2023-05-08] MEDS: METHADONE HCL 10 MG TAB PO SCH (21:06)
[2023-05-08 21:53] VITALS: BP 138/84; PULSE 71; RESP 17; TEMP 98.4; O2SAT 96
[2023-05-08 22:00] VITALS: BP 134/84; PULSE 71; RESP 17; TEMP 100.6; TEMP 98.4; O2SAT 96
[2023-05-09] VITALS (7 sets, daily range): BP systolic 105–149; BP diastolic 69–82; PULSE 47–101; RESP 17–19; TEMP 97.4–98.9; O2SAT 96–98
[2023-05-09] MEDS: ONDANSETRON HCL 4 MG/2 ML VIAL IV PRN ×2 (00:24→09:44)
[2023-05-09] MEDS: LORazepam 2MG/ML-1ML VIAL IV PRN ×4 (02:15→21:42)
[2023-05-09] MEDS: METHADONE HCL 10 MG TAB PO SCH ×4 (06:00→23:24)
[2023-05-09] MEDS: ENOXAPARIN SOD 40 MG/0.4 ML SYRINGE SC SCH (09:36)
[2023-05-09] MEDS: SODIUM CHLORIDE 0.9% 1,000 ML IV SCH (09:51)
[2023-05-09 11:08] LABS: Basophils # (auto) 0 10 ^3/uL (0-0.2); Basophils % (auto) 0.4 % (0.0-2.0); Eosinophils # (auto) 0.1 10 ^3/uL (0-0.8); Eosinophils % (auto) 0.7 % (0.0-7.0); Hematocrit 34.4 % (36.0-46.0); Hemoglobin 11.4 g/dL (12.2-16.2); Lymphocytes # (auto) 1.9 10 ^3/uL (0.4-5.4); Mean Corpuscular Hemoglobin 28.1 pg (28.0-32.0); Mean Corpuscular Hgb Conc. 33.1 g/dL (32.0-36.0); Mean Corpuscular Volume 84.7 fL (80.0-100.0); Monocytes # (auto) 0.6 10 ^3/uL (0-1.3); Neutrophils # (auto) 5.4 10 ^3/uL (1.6-8.6); Neutrophils % (auto) 66.9 % (37.0-80.0); Red Blood Cells 4.06 10^6/uL (4.0-5.20); Red Cell Distribution Width 13.9 % (11.8-14.3)
[2023-05-09 11:49] LABS: Albumin 3.5 g/dL (3.4-5.0); Calcium 8.4 mg/dL (8.5-10.1); Magnesium 2.2 mg/dL (1.6-2.6); Potassium 3.2 mmol/L (3.5-5.1)
[2023-05-09 11:57] LABS: BUN/Creatinine Ratio 11.3 (10.0-20.0); Bilirubin, Total 0.7 mg/dL (0.2-1.0); Total Protein 7.1 g/dL (6.4-8.2)
[2023-05-09] MEDS ORDERED: METOCLOPRAMIDE 10 mg/10ml ORAL soln GT PRN (12:00)
[2023-05-09] MEDS ORDERED: METOCLOPRAMIDE 10 mg/10ml ORAL soln PO PRN (13:15)
[2023-05-09] MEDS ORDERED: ONDANSETRON ODT 4 MG TAB PO PRN (18:45)
[2023-05-09] MEDS ORDERED: ONDANSETRON HCL 4 MG/2 ML VIAL IV ONE (18:45)
[2023-05-09] MEDS ORDERED: diphenhdrAMINE HCL 50 MG/1 ML VL IV ONE ×2 (19:00→23:45)
[2023-05-09] MEDS ORDERED: POTASSIUM CHL 20MEQ/100ML 100 ML IV ONE (20:00)
[2023-05-09] MEDS ORDERED: METOCLOPRAMIDE HCL 10 MG TAB PO PRN (20:00)
[2023-05-10] VITALS (11 sets, daily range): BP systolic 101–161; BP diastolic 53–98; PULSE 54–102; RESP 16–20; TEMP 97.2–98.3; O2SAT 91–99
[2023-05-10] MEDS ORDERED: KETOROLAC TROMETH 30 MG/ML 1ML VIAL IV ONE ×2 (00:45→15:45)
[2023-05-10] MEDS: SODIUM CHLORIDE 0.9% 1,000 ML IV SCH ×2 (01:20→18:17)
[2023-05-10] MEDS: LORazepam 2MG/ML-1ML VIAL IV PRN ×3 (03:10→21:49)
[2023-05-10] MEDS ORDERED: ONDANSETRON HCL 4 MG/2 ML VIAL ONE (03:23)
[2023-05-10] MEDS ORDERED: MORPHINE SULFATE INJ 2 MG/ml SYRG ONE (05:15)
[2023-05-10] MEDS: METHADONE HCL 10 MG TAB PO SCH ×3 (05:33→21:59)
[2023-05-10 08:13] LABS: Basophils # (auto) 0 10 ^3/uL (0-0.2); Basophils % (auto) 0.3 % (0.0-2.0); Eosinophils # (auto) 0 10 ^3/uL (0-0.8); Hematocrit 32.5 % (36.0-46.0); Lymphocytes # (auto) 1.8 10 ^3/uL (0.4-5.4); Lymphocytes % (auto) 14.6 % (10.0-50.0); Mean Corpuscular Hemoglobin 28.6 pg (28.0-32.0); Mean Corpuscular Hgb Conc. 33.9 g/dL (32.0-36.0); Mean Corpuscular Volume 84.4 fL (80.0-100.0); Monocytes # (auto) 0.7 10 ^3/uL (0-1.3); Monocytes % (auto) 5.7 % (0.0-12.0); Neutrophils # (auto) 9.6 10 ^3/uL (1.6-8.6); Neutrophils % (auto) 79.4 % (37.0-80.0); Nucleated Red Blood Cells % 0.1 %; Red Blood Cells 3.85 10^6/uL (4.0-5.20); Red Cell Distribution Width 13.9 % (11.8-14.3); White Blood Cell 12.1 10^3/uL (4.4-10.8)
[2023-05-10 08:29] LABS: Potassium 3.4 mmol/L (3.5-5.1)
[2023-05-10 08:37] LABS: Albumin 3.8 g/dL (3.4-5.0); BUN/Creatinine Ratio 16.2 (10.0-20.0); Bilirubin, Total 0.7 mg/dL (0.2-1.0); Calcium 8.5 mg/dL (8.5-10.1); Total Protein 7.3 g/dL (6.4-8.2)
[2023-05-10] MEDS: MORPHINE SULFATE INJ 2 MG/ml SYRG IV PRN ×4 (09:54→23:20)
[2023-05-10] MEDS: ENOXAPARIN SOD 40 MG/0.4 ML SYRINGE SC SCH (09:54)
[2023-05-10] MEDS: ONDANSETRON HCL 4 MG/2 ML VIAL IV PRN ×3 (09:55→23:20)
[2023-05-10] MEDS: PANTOPRAZOLE 40 MG/10 ML VIAL INJ IV SCH (10:00)
[2023-05-10] MEDS ORDERED: POTASSIUM CHL 20MEQ/100ML 100 ML IV ONE (11:15)
[2023-05-10] MEDS ORDERED: hydrALAZINE HCL 20 MG/ML VL IV PRN (13:45)
[2023-05-10] MEDS ORDERED: PROMETHAZINE HCL 25 MG/ML 1ML IV ONE (15:30)
[2023-05-10] MEDS: KETOROLAC TROMETH 30 MG/ML 1ML VIAL IV PRN (20:36)
[2023-05-11] VITALS (7 sets, daily range): BP systolic 93–155; BP diastolic 46–80; PULSE 56–82; RESP 17–19; TEMP 97.9–98.5; O2SAT 93–98
[2023-05-11] MEDS: KETOROLAC TROMETH 30 MG/ML 1ML VIAL IV PRN ×4 (02:37→21:01)
[2023-05-11] MEDS: METHADONE HCL 10 MG TAB PO SCH ×3 (06:00→21:25)
[2023-05-11 06:25] LABS: Calcium 8.5 mg/dL (8.5-10.1); Potassium 3.4 mmol/L (3.5-5.1)
[2023-05-11 06:28] LABS: Basophils # (auto) 0.1 10 ^3/uL (0-0.2); Basophils % (auto) 0.5 % (0.0-2.0); Eosinophils # (auto) 0 10 ^3/uL (0-0.8); Eosinophils % (auto) 0.3 % (0.0-7.0); Hemoglobin 11.4 g/dL (12.2-16.2); Lymphocytes # (auto) 2.6 10 ^3/uL (0.4-5.4); Lymphocytes % (auto) 24.5 % (10.0-50.0); Mean Corpuscular Hemoglobin 28.7 pg (28.0-32.0); Mean Corpuscular Hgb Conc. 33.7 g/dL (32.0-36.0); Mean Corpuscular Volume 85.3 fL (80.0-100.0); Monocytes # (auto) 0.7 10 ^3/uL (0-1.3); Monocytes % (auto) 6.8 % (0.0-12.0); Neutrophils # (auto) 7.2 10 ^3/uL (1.6-8.6); Neutrophils % (auto) 67.9 % (37.0-80.0); Nucleated Red Blood Cells % 0.3 %; Red Blood Cells 3.98 10^6/uL (4.0-5.20); Red Cell Distribution Width 13.9 % (11.8-14.3); White Blood Cell 10.7 10^3/uL (4.4-10.8)
[2023-05-11 06:29] LABS: Albumin 3.7 g/dL (3.4-5.0); BUN/Creatinine Ratio 18.2 (10.0-20.0)
[2023-05-11 06:31] LABS: Bilirubin, Total 0.8 mg/dL (0.2-1.0); Total Protein 7.1 g/dL (6.4-8.2)
[2023-05-11] MEDS ORDERED: POTASSIUM CHL 20MEQ/100ML 100 ML IV ONE (07:30)
[2023-05-11] MEDS: ONDANSETRON HCL 4 MG/2 ML VIAL IV PRN ×4 (08:49→23:03)
[2023-05-11] MEDS: LORazepam 2MG/ML-1ML VIAL IV PRN ×3 (08:58→22:50)
[2023-05-11] MEDS: PANTOPRAZOLE 40 MG/10 ML VIAL INJ IV SCH (09:00)
[2023-05-11] MEDS: SODIUM CHLORIDE 0.9% 1,000 ML IV SCH (09:04)
[2023-05-11] MEDS: ENOXAPARIN SOD 40 MG/0.4 ML SYRINGE SC SCH (09:04)
[2023-05-11 13:09] LABS: Hepatitis A Ab IgM Negative; Hepatitis B Core IgM Negative; Hepatitis B Surface Antigen Negative (Negative); Hepatitis C Antibody Negative (Negative)
[2023-05-11] MEDS ORDERED: CYANOCOBALAMIN (B-12) 1000 MCG/1 ML VIAL IM ONE (14:15)
[2023-05-11] MEDS ORDERED: ERGOCALCIFEROL 50,000 UNIT(1.25MG) CAP PO SCH (21:00)
[2023-05-12] MEDS ORDERED: HYDROcodone-ACET 10/325MG TAB PO ONE (00:15)
[2023-05-12] MEDS ORDERED: PROMETHAZINE HCL 25 MG/ML 1ML IV ONE (00:15)
[2023-05-12] MEDS: ONDANSETRON HCL 4 MG/2 ML VIAL IV PRN ×3 (02:47→20:02)
[2023-05-12] MEDS: KETOROLAC TROMETH 30 MG/ML 1ML VIAL IV PRN ×3 (02:48→17:25)
[2023-05-12 05:00] VITALS: BP 136/54; PULSE 60; RESP 22; TEMP 98.4; O2SAT 99
[2023-05-12] MEDS: SODIUM CHLORIDE 0.9% 1,000 ML IV SCH (05:17)
[2023-05-12] MEDS ORDERED: HYDROmorphone HCL 2 MG/ML VL/or syr IV ONE ×2 (05:45→20:45)
[2023-05-12] MEDS: METHADONE HCL 10 MG TAB PO SCH ×3 (06:00→21:13)
[2023-05-12 06:49] LABS: Basophils # (auto) 0 10 ^3/uL (0-0.2); Basophils % (auto) 0.5 % (0.0-2.0); Eosinophils # (auto) 0 10 ^3/uL (0-0.8); Eosinophils % (auto) 0.1 % (0.0-7.0); Hematocrit 33.3 % (36.0-46.0); Hemoglobin 11.3 g/dL (12.2-16.2); Lymphocytes # (auto) 1.7 10 ^3/uL (0.4-5.4); Lymphocytes % (auto) 16.2 % (10.0-50.0); Mean Corpuscular Hemoglobin 28.4 pg (28.0-32.0); Mean Corpuscular Hgb Conc. 33.8 g/dL (32.0-36.0); Mean Corpuscular Volume 83.9 fL (80.0-100.0); Monocytes # (auto) 0.6 10 ^3/uL (0-1.3); Monocytes % (auto) 5.5 % (0.0-12.0); Neutrophils % (auto) 77.7 % (37.0-80.0); Nucleated Red Blood Cells % 0.1 %; Red Blood Cells 3.97 10^6/uL (4.0-5.20); Red Cell Distribution Width 13.9 % (11.8-14.3); White Blood Cell 10.3 10^3/uL (4.4-10.8)
[2023-05-12 06:59] LABS: Albumin 3.8 g/dL (3.4-5.0); Calcium 8.4 mg/dL (8.5-10.1); Potassium 3.3 mmol/L (3.5-5.1)
[2023-05-12 07:01] LABS: BUN/Creatinine Ratio 25.4 (10.0-20.0)
[2023-05-12 07:12] LABS: Bilirubin, Total 0.9 mg/dL (0.2-1.0); Total Protein 7.4 g/dL (6.4-8.2)
[2023-05-12] MEDS: PANTOPRAZOLE 40 MG/10 ML VIAL INJ IV SCH ×3 (07:57→21:08)
[2023-05-12 08:30] VITALS: BP 112/77; PULSE 88; RESP 19; TEMP 98.2
[2023-05-12] MEDS: LORazepam 2MG/ML-1ML VIAL IV PRN ×3 (08:51→18:52)
[2023-05-12] MEDS: POTASSIUM CHL 20MEQ/100ML 100 ML IV SCH ×2 (08:54→13:21)
[2023-05-12 09:00] VITALS: BP 112/77; PULSE 88; RESP 19; TEMP 98.2; O2SAT 94
[2023-05-12] MEDS: D5W/LACTATED RINGERS 1,000 ML IV SCH ×2 (09:04→21:50)
[2023-05-12] MEDS ORDERED: CALCIUM GLUC 1,000mg/50ml-NS 50 ML IV ONE (09:30)
[2023-05-12 13:00] VITALS: BP 135/78; PULSE 80; RESP 19; TEMP 98.7; O2SAT 93
[2023-05-12] MEDS: METOCLOPRAMIDE HCL 5MG/ml INJ 2ml VIAL IV PRN (13:19)
[2023-05-12] MEDS ORDERED: MIDAZOLAM HCL 2MG/2ML 2ml VIAL (1mg/ml) ONE (15:44)
[2023-05-12] MEDS ORDERED: ONDANSETRON HCL 4 MG/2 ML VIAL ONE (16:19)
[2023-05-12] MEDS ORDERED: PROPOFOL 10 MG/ML 20 ML IV ONE (16:22)
[2023-05-12] MEDS: SUCRALFATE 1 GM/10 ML ORAL SUSP PO SCH ×3 (17:00→22:00)
[2023-05-12] MEDS ORDERED: diphenhdrAMINE HCL 50 MG/1 ML VL IV ONE (17:30)
[2023-05-12] MEDS: NYSTATIN (MOUTH-THROAT) 500,000 UNITS/5 ML SUSP MT SCH ×2 (17:32→21:17)
[2023-05-12 20:00] VITALS: BP 144/89; PULSE 87; RESP 20; TEMP 98.5; O2SAT 98
[2023-05-12 22:00] VITALS: BP 144/89; PULSE 85; RESP 20; TEMP 98.5; O2SAT 99
[2023-05-13] MEDS: D5W/LACTATED RINGERS 1,000 ML IV SCH ×2 (02:11→23:20)
[2023-05-13] MEDS: SUCRALFATE 1 GM/10 ML ORAL SUSP PO SCH ×6 (02:15→22:00)
[2023-05-13 05:00] VITALS: BP 125/72; PULSE 75; RESP 19; TEMP 98.8; O2SAT 100
[2023-05-13] MEDS: METHADONE HCL 10 MG TAB PO SCH ×3 (06:00→22:00)
[2023-05-13] MEDS: NYSTATIN (MOUTH-THROAT) 500,000 UNITS/5 ML SUSP MT SCH ×5 (06:00→22:00)
[2023-05-13] MEDS: METOCLOPRAMIDE HCL 5MG/ml INJ 2ml VIAL IV PRN ×3 (08:36→23:11)
[2023-05-13] MEDS: PANTOPRAZOLE 40 MG/10 ML VIAL INJ IV SCH ×3 (08:37→23:02)
[2023-05-13] MEDS: LORazepam 2MG/ML-1ML VIAL IV PRN ×4 (08:37→23:11)
[2023-05-13 09:00] VITALS: BP 124/79; PULSE 76; RESP 19; TEMP 98.3; O2SAT 99
[2023-05-13] MEDS ORDERED: POTASSIUM CHL 20MEQ/100ML 100 ML IV SCH (09:30)
[2023-05-13] MEDS: ONDANSETRON HCL 4 MG/2 ML VIAL IV PRN ×2 (10:13→14:34)
[2023-05-13] MEDS: KETOROLAC TROMETH 30 MG/ML 1ML VIAL IV PRN ×2 (11:02→18:28)
[2023-05-13] MEDS ORDERED: PANT40TA2 PO (12:00)
[2023-05-13] MEDS ORDERED: ZOFR4T PO (12:00)
[2023-05-13] MEDS ORDERED: CYANOCOBALAMIN (B-12) 1000 MCG/1 ML VIAL IM ONE (12:00)
[2023-05-13] MEDS ORDERED: ERGO1CAP23 PO (12:00)
[2023-05-13] MEDS ORDERED: SUCR1SUS26 PO (12:00)
[2023-05-13] MEDS ORDERED: NYS5LQ MT (12:00)
[2023-05-13 13:00] VITALS: BP 141/84; PULSE 85; RESP 17; TEMP 98; O2SAT 94
[2023-05-13] MEDS ORDERED: CLINIMIX PER PHARMACY 0 ML IV SCH (13:00)
[2023-05-13 17:00] VITALS: BP 118/72; PULSE 69; RESP 17; TEMP 97.9; O2SAT 97
[2023-05-13 17:33] LABS: Basophils # (auto) 0.1 10 ^3/uL (0-0.2); Basophils % (auto) 0.6 % (0.0-2.0); Eosinophils # (auto) 0 10 ^3/uL (0-0.8); Eosinophils % (auto) 0.3 % (0.0-7.0); Hematocrit 31.8 % (36.0-46.0); Hemoglobin 10.7 g/dL (12.2-16.2); Lymphocytes # (auto) 2.1 10 ^3/uL (0.4-5.4); Lymphocytes % (auto) 18.9 % (10.0-50.0); Mean Corpuscular Hemoglobin 28.6 pg (28.0-32.0); Mean Corpuscular Hgb Conc. 33.7 g/dL (32.0-36.0); Mean Corpuscular Volume 84.7 fL (80.0-100.0); Monocytes # (auto) 0.7 10 ^3/uL (0-1.3); Monocytes % (auto) 6.2 % (0.0-12.0); Neutrophils # (auto) 8.1 10 ^3/uL (1.6-8.6); Nucleated Red Blood Cells % 0.2 %; Red Blood Cells 3.76 10^6/uL (4.0-5.20); White Blood Cell 10.9 10^3/uL (4.4-10.8)
[2023-05-13 17:47] LABS: Albumin 3.5 g/dL (3.4-5.0); BUN/Creatinine Ratio 12.7 (10.0-20.0); Calcium 8.4 mg/dL (8.5-10.1); Potassium 3.1 mmol/L (3.5-5.1)
[2023-05-13 17:49] LABS: Bilirubin, Total 0.8 mg/dL (0.2-1.0); Total Protein 6.8 g/dL (6.4-8.2)
[2023-05-13] MEDS: AMINO ACID INFUSION IN D10W 1,000 ML IV NR (20:49)
[2023-05-13 22:00] VITALS: BP 125/87; PULSE 89; RESP 19; TEMP 98.3; O2SAT 99
[2023-05-13] MEDS: InsuLIN REG 1unit/0.01ml Soln (100units/ml) SC SCH (23:20)
[2023-05-13] MEDS: ACCU-CHEK COMFORT CURVE STRIP VI SCH (23:20)
[2023-05-14] VITALS (8 sets, daily range): BP systolic 106–131; BP diastolic 68–90; PULSE 79–98; RESP 18–20; TEMP 97.9–98.8; O2SAT 92–98
[2023-05-14] MEDS ORDERED: DEXTROSE (50%) 50ML SYRG IV SCH
[2023-05-14] MEDS: KETOROLAC TROMETH 30 MG/ML 1ML VIAL IV PRN (05:32)
[2023-05-14] MEDS: METOCLOPRAMIDE HCL 5MG/ml INJ 2ml VIAL IV PRN ×3 (05:32→22:25)
[2023-05-14] MEDS: PANTOPRAZOLE 40 MG/10 ML VIAL INJ IV SCH ×3 (05:32→22:00)
[2023-05-14] MEDS: NYSTATIN (MOUTH-THROAT) 500,000 UNITS/5 ML SUSP MT SCH ×4 (05:37→22:00)
[2023-05-14] MEDS: METHADONE HCL 10 MG TAB PO SCH ×3 (05:38→22:00)
[2023-05-14] MEDS: InsuLIN REG 1unit/0.01ml Soln (100units/ml) SC SCH ×3 (05:41→18:00)
[2023-05-14] MEDS: ACCU-CHEK COMFORT CURVE STRIP VI SCH ×3 (05:41→18:16)
[2023-05-14] MEDS: SUCRALFATE 1 GM/10 ML ORAL SUSP PO SCH ×4 (05:41→22:00)
[2023-05-14 06:35] LABS: Basophils # (auto) 0.1 10 ^3/uL (0-0.2); Basophils % (auto) 0.9 % (0.0-2.0); Eosinophils # (auto) 0.2 10 ^3/uL (0-0.8); Eosinophils % (auto) 2.4 % (0.0-7.0); Hematocrit 38.8 % (36.0-46.0); Hemoglobin 12.9 g/dL (12.2-16.2); Lymphocytes # (auto) 2.8 10 ^3/uL (0.4-5.4); Lymphocytes % (auto) 30.2 % (10.0-50.0); Mean Corpuscular Hemoglobin 28.6 pg (28.0-32.0); Mean Corpuscular Hgb Conc. 33.3 g/dL (32.0-36.0); Mean Corpuscular Volume 85.7 fL (80.0-100.0); Monocytes # (auto) 0.8 10 ^3/uL (0-1.3); Monocytes % (auto) 8.7 % (0.0-12.0); Neutrophils # (auto) 5.4 10 ^3/uL (1.6-8.6); Neutrophils % (auto) 57.8 % (37.0-80.0); Red Blood Cells 4.53 10^6/uL (4.0-5.20); White Blood Cell 9.4 10^3/uL (4.4-10.8)
[2023-05-14 07:00] LABS: Calcium 9.2 mg/dL (8.5-10.1); Magnesium 2.4 mg/dL (1.6-2.6); Potassium 3.1 mmol/L (3.5-5.1)
[2023-05-14 07:07] LABS: BUN/Creatinine Ratio 12.2 (10.0-20.0); Phosphorus 3.8 mg/dL (2.5-4.90); Total Protein 7.6 g/dL (6.4-8.2)
[2023-05-14] MEDS ORDERED: ACETAMINOPHEN 325 MG RECT SUPP PR PRN (09:45)
[2023-05-14] MEDS: POTASSIUM CHL 20MEQ/100ML 100 ML IV SCH ×3 (11:30→16:49)
[2023-05-14] MEDS: LORazepam 2MG/ML-1ML VIAL IV PRN ×3 (11:31→22:25)
[2023-05-14] MEDS: D5W/LACTATED RINGERS 1,000 ML IV SCH (13:50)
[2023-05-14] MEDS: ONDANSETRON HCL 4 MG/2 ML VIAL IV PRN (18:25)
[2023-05-14] MEDS ORDERED: KETOROLAC TROMETH 30 MG/ML 1ML VIAL IV ONE (22:15)
[2023-05-15] MEDS: ONDANSETRON HCL 4 MG/2 ML VIAL IV PRN ×2 (02:04→10:20)
[2023-05-15] MEDS: D5W/LACTATED RINGERS 1,000 ML IV SCH (03:10)
[2023-05-15] MEDS: PANTOPRAZOLE 40 MG/10 ML VIAL INJ IV SCH (06:00)
[2023-05-15] MEDS: NYSTATIN (MOUTH-THROAT) 500,000 UNITS/5 ML SUSP MT SCH ×2 (06:00→11:38)
[2023-05-15] MEDS: InsuLIN REG 1unit/0.01ml Soln (100units/ml) SC SCH ×3 (06:00→12:00)
[2023-05-15] MEDS: METHADONE HCL 10 MG TAB PO SCH (06:00)
[2023-05-15] MEDS: ACCU-CHEK COMFORT CURVE STRIP VI SCH ×3 (06:00→12:00)
[2023-05-15] MEDS ORDERED: POTASSIUM CHL 20MEQ/100ML 100 ML IV SCH (07:15)
[2023-05-15] MEDS: AMINO ACID INFUSION IN D10W 1,000 ML IV NR (07:46)
[2023-05-15 08:00] VITALS: O2SAT 97
[2023-05-15 08:45] VITALS: BP 132/75; PULSE 94; RESP 17; TEMP 98.4; O2SAT 97
[2023-05-15 08:47] LABS: Basophils # (auto) 0 10 ^3/uL (0-0.2); Basophils % (auto) 0.6 % (0.0-2.0); Eosinophils # (auto) 0.2 10 ^3/uL (0-0.8); Eosinophils % (auto) 2.1 % (0.0-7.0); Hematocrit 35.6 % (36.0-46.0); Hemoglobin 11.8 g/dL (12.2-16.2); Lymphocytes # (auto) 1.7 10 ^3/uL (0.4-5.4); Mean Corpuscular Hemoglobin 28.3 pg (28.0-32.0); Mean Corpuscular Hgb Conc. 33.2 g/dL (32.0-36.0); Mean Corpuscular Volume 85.1 fL (80.0-100.0); Monocytes # (auto) 0.7 10 ^3/uL (0-1.3); Neutrophils # (auto) 5.8 10 ^3/uL (1.6-8.6); Neutrophils % (auto) 69.3 % (37.0-80.0); Red Blood Cells 4.19 10^6/uL (4.0-5.20); Red Cell Distribution Width 14.8 % (11.8-14.3); White Blood Cell 8.3 10^3/uL (4.4-10.8)
[2023-05-15 09:08] LABS: Potassium 3.3 mmol/L (3.5-5.1)
[2023-05-15 09:14] LABS: Albumin 3.6 g/dL (3.4-5.0); BUN/Creatinine Ratio 12.5 (10.0-20.0); Bilirubin, Total 0.6 mg/dL (0.2-1.0); Phosphorus 2.7 mg/dL (2.5-4.90)
[2023-05-15] MEDS: SUCRALFATE 1 GM/10 ML ORAL SUSP PO SCH ×2 (10:20→11:30)
[2023-05-15] MEDS: LORazepam 2MG/ML-1ML VIAL IV PRN (10:20)
[2023-05-15] MEDS ORDERED: POTASSIUM CHLORIDE 20 MEQ, LIDOCAINE 1% (LOCAL ANESTH.) 2 ML in SODIUM CHL 0.9% 100 ML IV ONE (11:15)
== END 2023-05-15 12:51 | disposition home or self-care (01) | DRG 254 ==
LOC: ER 11:12 → EDBD 11:12 → TELE 16:07 → TELE-WESTW 20:58 → WEST WING 05-09 12:05
PROVIDERS: ADMIT Internal Medicine; ATTEND Internal Medicine
PROC: 0DB68ZX Excision of Stomach, Via Natural or Artificial Opening Endoscopic, Diagnostic (ICD-10-PCS; 2023-05-12)
PROC: 0DB38ZX Excision of Lower Esophagus, Via Natural or Artificial Opening Endoscopic, Diagnostic (ICD-10-PCS; 2023-05-12)
PROC: 0DB98ZX Excision of Duodenum, Via Natural or Artificial Opening Endoscopic, Diagnostic (ICD-10-PCS; principal; 2023-05-12 15:15)
DX: K44.9 Diaphragmatic hernia without obstruction or gangrene (principal); K22.10 Ulcer of esophagus without bleeding; K29.90 Gastroduodenitis, unspecified, without bleeding; E86.0 Dehydration; E87.6 Hypokalemia; F41.9 Anxiety disorder, unspecified; F11.23 Opioid dependence with withdrawal; Z82.49 Family history of ischemic heart disease and other diseases of the circulatory system; K31.9 Disease of stomach and duodenum, unspecified; Z82.5 Family history of asthma and other chronic lower respiratory diseases; Z88.1 Allergy status to other antibiotic agents; Z90.49 Acquired absence of other specified parts of digestive tract; R11.10 Vomiting, unspecified
CPT/HCPCS: 36415; 74176; 80053; 80061; 80069; 80074; 80307; 81001; 81025; 82150; 82306; 82607; 82962; 83605; 83690; 83735; 84100; 84443; 85025; 86677; 96361; 96372; 96374; 96375; C9113; G0378; J1815; J1885; J2001; J2250; J2405; J2704; J3480; Q0162

== ENCOUNTER 2023-06-18 14:39 | Emergency (ER) | payer MEDICAID, OTHER ==
[~2023-06-18] VITALS: Ht 165.1 cm; Wt 61.8 kg
[~2023-06-18 14:39] MED LIST changes: -AMOX500T86 PO; -CLON1TAB PO; +ERGO1CAP23 PO; -HYDR-4902 PO; +NYS5LQ MT; +SUCR1SUS26 PO
[2023-06-18 15:41] VITALS: BP 124/82; PULSE 89; RESP 18; TEMP 98; O2SAT 96
[2023-06-18] MEDS ORDERED: KETOROLAC TROMETH 60MG/2ML VIAL IM ONE (15:45)
[2023-06-18] MEDS ORDERED: IBUP-1454 PO (16:03)
[2023-06-18] MEDS ORDERED: METH-1182 PO (16:03)
== END 2023-06-18 16:09 | disposition home or self-care (01) ==
LOC: ER 14:39
DX: S16.1XXA Strain of muscle, fascia and tendon at neck level, initial encounter (principal); F41.9 Anxiety disorder, unspecified; Z90.49 Acquired absence of other specified parts of digestive tract; Z88.6 Allergy status to analgesic agent; V43.52XA Car driver injured in collision with other type car in traffic accident, initial encounter; Y93.89 Activity, other specified; Y92.488 Other paved roadways as the place of occurrence of the external cause; Y99.8 Other external cause status
CPT/HCPCS: 72040; 96372; 99283; J1885